=== PATIENT | female | born 1955 | race Caucasian/White ===

== ENCOUNTER 2018-12-02 05:16 | Inpatient (IN) ==
[2018-12-02] MEDS ORDERED: Metoprolol Tartrate 25 MG Tablet PO ONE (05:45)
[2018-12-02] MEDS ORDERED: Sodium Chlor 0.9% Inj 500 ML IV.CONT ONE (05:45)
[2018-12-02] MEDS ORDERED: Chlorhexidine Gluconate 2% 1 Pack (2 Cloths) TOPICAL ONE (05:45)
[2018-12-02] MEDS ORDERED: Sodium Chlor 0.9% Inj 73.07 ML, Ropivacaine 0.5% PF Inj 24.63 ML, Ketorolac Inj 30 MG, ... P-ARTICULR SCH ×5 (05:56)
[2018-12-02] MEDS ORDERED: Vancomycin Inj 1,000 MG in Sodium Chlor 0.9% Inj 250 ML IV.SIG SCH (06:00)
[2018-12-02] MEDS ORDERED: Chlorhexidine 4% Topical 120 APPLIC/120 ML Bottle TOPICAL SCH (06:00)
[2018-12-02] MEDS ORDERED: ceFAZolin 2 GM Premix Inj 2 GM/50 ML PIGGYBACK IV.SIG SCH (06:00)
[2018-12-02] MEDS ORDERED: TRANEXAMIC ACID IV.SIG SCH (06:00)
[2018-12-02] MEDS ORDERED: SODIUM CHLOR 0.9% IV.SIG SCH (06:00)
[2018-12-02] MEDS ORDERED: Dexamethasone PF Inj 10 MG/ML Vial IV.PUSH SCH (06:15)
[2018-12-02] MEDS ORDERED: Bupivacaine Liposomal PF 1.3% Inj 20 ML Vial ONE (07:28)
[2018-12-02] MEDS ORDERED: Sodium Chlor 0.9% Inj 10 ML ONE (07:28)
[2018-12-02] MEDS ORDERED: Neostigmine Inj 5 MG/5 ML Syringe IV.PUSH ONE (08:09)
[2018-12-02] MEDS ORDERED: Glycopyrrolate Inj 1 MG/5 ML Syringe IV.PUSH ONE (08:09)
[2018-12-02] MEDS ORDERED: Lidocaine PF 1% Inj 5 ML Syringe INFILTRATN ONE (08:09)
[2018-12-02] MEDS ORDERED: Bisacodyl 10 MG Supp RECTAL PRN (10:14)
[2018-12-02] MEDS ORDERED: Zolpidem Tartrate 5 MG Tablet PO PRN (10:14)
[2018-12-02] MEDS ORDERED: Aluminum/Magnesium/Simethacone Susp 30 ML UDC PO PRN (10:14)
[2018-12-02] MEDS ORDERED: Morphine Inj 4 MG/ML Vial IV.PUSH PRN (10:14)
[2018-12-02] MEDS ORDERED: Post-op Orders (for Pharmacy) OTHER STA (10:14)
--- NOTE | 2018-12-02 10:16 | P.OP ---
- Preoperative Diagnosis (1) Osteoarthritis of right knee - Postoperative Diagnosis (1) Osteoarthritis of right knee Date of procedure: 12/02/18 Procedure: Right total knee arthroplasty [facility] Surgeon: Jonah Rivas MD Central Supply Aide: JO-ANN Navarro The surgical procedure was assisted by my Advanced Registered Nurse Practitioner. My CONSTRUCTION DIRECTOR presence was necessary throughout this case for the manipulation and positioning of the surgical extremity. My CONSTRUCTION DIRECTOR was assisting me throughout the duration of this procedure. The skill set of an Advance Registered Nurse Practitioner was medically necessary to complete this procedure. During the surgical case, the surgical coordinator was working at the back table and the Advance Registered Nurse Practitioner was directly assisting me. Operation and Findings: IMPLANTS: DePuy Attune: Patella: size 32. Femur, posterior stabilized size 5. Tibia, rotating platform size 5. Tibial insert, rotating platform, posterior stabilized size 5 mm thickness. ESTIMATED BLOOD LOSS: 50 cc TOURNIQUET TIME: 43 minutes at 250 mmHg pressure. JUSTIFICATION FOR PROCEDURE: The patient has end-stage osteoarthritis to the knee. There is an attached conservative measures pathway form in the chart that describes the nonoperative measures that were undertaken prior to consideration of surgical management. The patient understood the risks and benefits of surgical management. See my office notes for further details PROCEDURE: The patient was brought back to the operative theatre. Adequate anesthesia was obtained. The patient received intravenous Ancef and vancomycin. The lower extremity was prepped and draped in the usual sterile fashion.The leg was exsanguinated, the tourniquet was raised. A standard anterior incision was performed followed by medial parapatellar arthrotomy was performed. End-stage arthritis was identified. Osteotomy of the patella was performed. We drilled holes for the patella. We trialed the patella component. We placed an intramedullary guide into the distal femur. We ultimately resected 13 mm off of the distal femur in 5 degrees of valgus. The remnants of the ACL and PCL were resected. Osteotomy of the proximal tibia was performed, resecting 5 mm off of the medial side. This was done with 3 degrees of posterior slope using an extramedullary guide. The distal end of the guide was placed in the mid aspect of the ankle. The femur was sized, and four chamfer cuts were completed in 3 of external rotation. We then cut the central box in the distal femur to replace the PCL. We resected the remnants of the menisci and removed osteophytes off of the femur and tibia. We then trialed the knee. We punched the tibia for the keel, and then used standard technique to cement in components. Excess cement was removed. We trialed the knee again and the final polyethylene thickness was chosen to provide extension to 0 degrees, and flexion of 140 degrees to gravity. The ligaments were appropriately balanced. Lateral release was necessary to obtain excellent patellofemoral tracking. The tourniquet was released and adequate hemostasis was obtained. An intra- articular injection of a ropivacaine cocktail was injected. The posterior knee was inspected for excess cement, which was removed. The final polyethylene was put into position after thorough irrigation. We then closed the arthrotomy site with a #2 Stratafix, followed by fascia with #2-0 Stratafix, followed by skin with 2-0 Vicryl followed by Dermabond dressing. Postop plan is to weight-bear as tolerated. DVT prophylaxis will be performed with SCDs, ALEKS hose, early mobilization, and aspirin.
[2018-12-02] MEDS ORDERED: *morphine SULFATE 4 MG/ML PERIprocedure ONLY ONE ×3 (11:05→12:12)
[2018-12-02] MEDS ORDERED: fentaNYL Citrate Inj 100 MCG/2 ML Ampul ONE (11:06)
[2018-12-02] MEDS ORDERED: diphenhydrAMINE HCl 50 MG/ML VIAL IV.PUSH ONE (11:09)
[2018-12-02] MEDS ORDERED: SODIUM CHLOR 0.9% IV.SIG ONE (11:15)
[2018-12-02] MEDS ORDERED: TRANEXAMIC ACID IV.SIG ONE (11:15)
[2018-12-02] MEDS: Sod Chloride 0.9% Inj 1,000 ML IV.CONT SCH ×2 (12:00→23:24)
--- NOTE | 2018-12-02 12:32 | XR ---
EXAM DATE: 12/02/2018 12:19 PM EST AGE/SEX: 63 years / Female INDICATIONS: Post op right knee surgery. CLINICAL DATA: This is the patient's initial encounter. Patient reports that signs and symptoms have been present for 1 day and indicates a pain score of 5/10. MEDICAL/SURGICAL HISTORY: None. None. COMPARISON: POI, MR KNEE W/O CONTRAST, RIGHT, 10/01/2014. . FINDINGS: Right knee arthroplasty in place. Arthroplasty components are in anatomic alignment. No significant a cute fracture. Immediate postsurgical soft tissue changes. CONCLUSION: 1. Status post right knee arthroplasty in anatomic alignment without acute fracture. Electronically signed by: Jose Rush MD Board Certified Radiologist 12/02/2018 12:31 PM ALYSSA T
[2018-12-02] MEDS: ceFAZolin Inj 1 GM in Sodium Chlor 0.9% Inj 100 ML IV.SIG SCH (20:19)
[2018-12-02] MEDS: Senna/Docusate Sodium 8.6/50 MG Tablet PO SCH (21:01)
[2018-12-02] MEDS: Multivitamin/Minerals Therapeutic Tablet PO SCH (21:01)
[2018-12-02] MEDS ORDERED: Butalbital/APAP/Caff 50/325/40 MG Tablet PO PRN (21:52)
[2018-12-02 22:26] VITALS: RESP 18
[2018-12-03] MEDS: ceFAZolin Inj 1 GM in Sodium Chlor 0.9% Inj 100 ML IV.SIG SCH (02:13)
[2018-12-03 04:56] LABS: Hematocrit 30.8 % (35.0-46.0); Hemoglobin 10.5 gm/dL (11.6-15.3)
--- NOTE | 2018-12-03 07:20 | P.PNOP ---
Subjective Interval history: The patient is resting comfortably in bed in no acute distress. The patient reports minimal pain to the right knee. The patient states she has not had to take any narcotic pain medication and is planning to take Tylenol instead. The patient has requested to go home today. Physical Exam Vital signs: Vital Signs 12/02/18 07:25 12/02/18 07:26 12/02/18 10:47 Temperature 98.4 F 97.3 F L Pulse Rate 66 61 87 Respiratory Rate 20 17 Blood Pressure 119/68 133/74 Pulse Oximetry 99 97 100 12/02/18 11:00 12/02/18 11:15 12/02/18 11:30 Temperature Pulse Rate 55 L 61 56 L Respiratory Rate 20 22 22 Blood Pressure 124/59 L 116/61 117/64 Pulse Oximetry 99 97 95 12/02/18 11:45 12/02/18 12:00 12/02/18 13:00 Temperature Pulse Rate 54 L 55 L 65 Respiratory Rate 22 22 22 Blood Pressure 129/63 123/56 L 107/66 Pulse Oximetry 94 L 95 98 12/02/18 14:00 12/02/18 15:00 12/02/18 16:00 Temperature 98.3 F 97.6 F Pulse Rate 64 66 66 Respiratory Rate 22 16 20 Blood Pressure 105/60 117/55 L 94/50 L Pulse Oximetry 96 99 94 L 12/02/18 19:48 12/02/18 23:23 12/03/18 03:40 Temperature 97.6 F 98.0 F 98.0 F Pulse Rate 65 85 67 Respiratory Rate 18 18 18 Blood Pressure 110/53 L 129/68 103/57 L Pulse Oximetry 98 97 96 Intake & Output 12/02/18 12/03/18 12/03/18 18:59 06:59 18:59 Intake Total 2274.36 / 2274.36 1220 / 1220 Output Total 50 / 50 Balance 2224.36 / 2224.36 1220 / 1220 Weight 0 g 67 kg Intake: IV 814.36 / 814.36 500 / 500 NS Inj 1,000 ML @ 80 mls/hr IV. 200 / 200 300 / 300 CONT .[id number] [facility] Rx#:[id number] Cyklokapron Inj 676 MG In NS 214.36 / 214.36 Inj 100 ML @ 200 mls/hr IV.SIG ONCE ONE Rx#:[id number] Vancomycin Inj 1,000 MG In NS 250 / 250 Inj 250 ML @ 250 mls/hr IV.SIG DIRECTOR OF PAYROLL [facility] Rx#:[id number] Ancef 2 GM Premix Inj 2 gm In 50 / 50 50 ml @ 100 mls/hr IV.SIG DIRECTOR OF PAYROLL [facility] Rx#:[id number] Ancef Inj 1 GM In NS Inj 100 ML 200 / 200 @ 200 mls/hr IV.SIG Q6H [facility] Rx #:[id number] Ancef Inj 1,000 MG In NS Inj 100 / 100 100 ML @ 200 mls/hr IV.SIG Q6H [facility] Rx#:[id number] Oral 360 / 360 720 / 720 Anesthesia Amount 1100 / 1100 Output: Urine 0 / 0 Estimated Blood Loss 50 / 50 Other: # Voids 4 Date of Last Bowel Movement 12/02/18 # Bowel Movements 0 Narrative: The patient's dressing is clean, dry, and intact. EHL/TA/G are intact. 2+ pedal pulse. The patient's calf is soft and nontender. Sensation is intact to light touch distally. Results - Labs CBC & Chem 7: 12/03/18 04:05 Laboratory Results - last 24 hr 12/02/18 12/03/18 07:00 04:05 Hgb 10.5 L Hct 30.8 L Blood Type A Positive Blood Type Recheck Required Antibody Screen Negative - Imaging Impressions Knee X-Ray 12/02/18 10:14 CONCLUSION: 1. Status post right knee arthroplasty in anatomic alignment without acute fracture. - Procedures Right total knee arthroplasty Assessment and Plan - Assessment and Plan POD #1: [Right] total knee arthroplasty 1. Weightbearing as tolerated on [right] lower extremity. 2. Aspirin 81 mg twice daily for DVT prophylaxis. 3. Ice as needed for swelling. 4. Stable per ortho for discharge to home health today following her class. 5. The patient will follow up with Dr. Rivas and/or JO-ANN Love as previously scheduled.
[2018-12-03] MEDS ORDERED: Dexamethasone PF Inj 10 MG/ML Vial IV.PUSH ONE (08:00)
[2018-12-03] MEDS: Multivitamin/Minerals Therapeutic Tablet PO SCH (10:25)
[2018-12-03] MEDS: Senna/Docusate Sodium 8.6/50 MG Tablet PO SCH (10:26)
[2018-12-03 11:43] VITALS: BP 101/63; PULSE 75; TEMP 99.2; O2SAT 97
--- NOTE | 2018-12-04 14:34 | P.DS ---
Date of admission: 12/02/18 10:14 Primary care physician: Len Jeffries DO Attending physician on discharge: Jonah Rivas Anticipated date of discharge: 12/03/18 Brief History from admission: The patient was admitted with severe osteoarthritis of the right knee to have a right total knee arthroplasty. DS: Diagnosis - Discharge Diagnosis (1) Status post total knee replacement, right Status: Acute (2) Osteoarthritis of right knee Status: Acute DS: Summary Hospital Course: The patient was admitted to the hospital for severe osteoarthritis of the [right ] knee to have a [right] total knee arthroplasty. The patient's surgery went well with no complication. The patient is on a [regular] diet. The patient's DVT prophylaxis includes use of aspirin 81 mg twice daily. The patient is weightbearing as tolerated. The patient was discharged [home with home health] and will follow up in the office with Dr. Rivas and/or JO-ANN Love as previously scheduled. - Time Spent with Patient Total time spent providing and/or coordinating discharge services: Greater than 30 minutes - Quality: VTE Deep Vein Thrombosis/Pulmonary Embolism Present on Admission: No Exam Vital signs: Intake & Output 12/03/18 12/04/18 12/04/18 18:59 06:59 18:59 Other: Date of Last Bowel Movement 12/02/18 Narrative: The patient's dressing is clean, dry, and intact. EHL/TA/G are intact. 2+ pedal pulse. The patient's calf is soft and nontender. Sensation is intact to light touch distally. Results Procedures completed during hospitalization: Right total knee arthroplasty - Impressions ITS Impressions Knee X-Ray 12/02/18 10:14 CONCLUSION: 1. Status post right knee arthroplasty in anatomic alignment without acute fracture. Discharge Plan - Discharge Disposition Patient Disposition: 01 Discharge Home - Discharge Condition Condition: Stable - Discharge Order Discharge Orders: Discharge Order (Routine); Ordered 12/02/18 Ordered By: Kevon Butts - Discharge Details Anticipated Discharge Date: 12/03/18 - Physicians Team Primary Care Provider: Len Jeffries Attending Provider: Jonah Rivas - Rxs /Orders / Referrals /Forms Prescriptions: Continue ascorbic acid (vitamin C) [Vitamin C] 1,000 mg Tablet 500 mg PO DAILY cholecalciferol (vitamin D3) [Vitamin D3] 1,000 unit Capsule 1,000 unit PO DAILY cyanocobalamin (vitamin B-12) [Vitamin B-12] 1,000 mcg Tablet 1,000 mcg PO DAILY ferrous sulfate 325 mg (65 mg iron) Tablet 325 mg PO DAILY Discontinued cinnamon bark [Cinnamon] 500 mg Capsule 1 cap PO DAILY robert (Zingiber officinalis) [robert extract] 250 mg Capsule 250 mg PO DAILY turmeric 400 mg Capsule 1 cap PO DAILY Ambulatory Orders / Order Sets / DME: Adjustable Commode 3-in-1 (1 each) (Routine) Location: Determined by Patient Ordered By: Kevon Butts CPM - Continuous Passive Motion Machine (1 each) (Routine) Location: Determined by Patient Ordered By: Kevon Butts Walker With Front Wheels (1 each) (Routine) Location: Determined by Patient Ordered By: Kevon Butts Referrals: Jonah Rivas MD [Physician] - 12/10/18 8:45 am (F/U in the office as previously scheduled with Dr. Rivas or Patrick Btuts APRN Your appointment has been scheduled for [12/10/18] at [0845] F/U WITH GARIMA KIM ON 12/16/18 AT 0900 AM If you cannot make this appointment, please call the office to reschedule Please call the physician's office to book the appointment to be seen within [].) Len Jeffries DO [Primary Care Provider] - See Instructions - Discharge Instructions Patient Printed Instructions: How to Choose and Use a Walker (GEN), Fall Prevention for Older Adults (ED), Driving Restrictions (ED), Knee Replacement ( DC) Additional Instructions: PLEASE FILL AND TAKE ALL MEDICATIONS PRESCRIBED F/U in the office as previously scheduled with Dr. Rivas or Patrick Butts APRN Your appointment has been scheduled for [12/10/18] at [0845] F/U WITH GARIMA KIM ON 12/16/18 AT 0900 AM IN CASE OF EMERGENCY CALL 911 OR RETURN TO [facility] - Post Discharge Care Plan Care Plan Goals: Discharge Care Plan Goals for Total Knee Replacement You have undergone knee replacement surgery. Your doctor replaced your painful joint with an artificial joint to relieve pain and restore movement. Here are some goals to help you heal well. Directions to Meet your Goals: 1. Activity & Exercises: * Take pain medicine as directed by your doctor. * Sit in chairs with arms. The arms make it easier for you to stand up or sit down. * Dont sit for more than 30 to 45 minutes at one time. * Nap if you are tired, but dont stay in bed all day. * Sleep with a pillow under your ankle, not your knee. Be sure to change the position of your leg during the night. * Wear the support stockings you were given in the hospital as directed by your surgeon. 2. Prevent Falls/Injury: The mccormick to successful recovery is movement with walking and exercising your knee as directed by your doctor. * Arrange your household to keep the items you need handy. Keep everything else out of the way. * Remove items that may cause you to fall, such as throw rugs and electrical cords. * Use nonslip bath mats, grab bars, an elevated toilet seat, and a shower chair in your bathroom * Sit on a shower stool or chair when you shower to keep from falling. * Until your balance, flexibility, and strength improve, use a cane, crutches, a walker, handrails, or someone to help you. * Keep your hands free by using a backpack, suad pack, apron, or pockets to carry things * Walk up and down stairs with support. Try one step at a time. Use the railing if possible. * Dont drive until your doctor says its OK. * Dont drive while you are taking opioid pain medicine. 3. Precautions: * Prevent infection. Any infection will need to be treated immediately. Call your doctor right away if you think you might have an infection. * Tell your dentist that you have an artificial joint and take antibiotics as prescribed before any dental work. * Tell all your healthcare providers about your artificial joint before any medical procedure. * Maintain a healthy weight. Get help to lose any extra pounds. Added body weight puts stress on the knee. * Your medications may include blood-thinning medicine to prevent blood clots or antibiotics to prevent infection-prevent any falls or cuts 4. Incision Care: * Prevent infection by washing your hands often. If an infection occurs, it will need to be treated right away. * Call your doctor right away if you think you may have an infection. Symptoms include a fever or an incision that leaks white, green, or yellow fluid. * Don't soak your incision in water until your doctor says its OK. This means no hot tubs, bathtubs, or swimming pools. * Follow your doctor's instructions for changing the dressing. * Dont rub the incision, or apply creams or lotions to it. * If you notice any redness or drainage around the bandage site, contact your surgeon's office immediately. 5. Follow-Up: Do Not miss your follow-up appointment. Keep up with all your appointments and yearly check ups When to call your doctor: Call your doctor right away if you have: Fever of 100.4F (38C) or higher, or as directed by your doctor Shaking chills Stiffness, or inability to move the knee Increased swelling in your leg Increased redness, tenderness, or swelling in or around the knee incision Drainage from the knee incision Increased knee pain Call 911: Call 911 right away if you have: Chest pain Shortness of breath Any pain or tenderness in your calf
== END 2018-12-03 15:20 | disposition home or self-care (01) | DRG 470 ==
LOC: HSDC 05:16 → EDSTATUS 08:30 → HSDI 10:14 → N06 15:15
PROVIDERS: ADMIT Orthopaedic Surgery; ATTEND Orthopaedic Surgery
CPT/HCPCS: 73560; 85014; 85018; 86850; 86900; 86901; 94150; 97110; 97116; 97150; 97162; C1776; C9290; J0131; J0171; J0690; J0735; J1100; J1200; J1580; J1885; J2250; J2270; J2405; J2704; J2710; J2795; J3010; J3370; J7030; J7050; J7120; L1830